=== PATIENT | female | born 1975 | race Hispanic/Latino ===

== ENCOUNTER → 2019-09-24 | Day surgery (SDC) | payer OTHER ==
[2019-09-20 10:39] LABS: BASOPHILS % 0.2 % (0.0-1.0); EOSINOPHILS # (AUTO) 0.1 (0.0-0.4); EOSINOPHILS % 0.6 % (0.0-6.0); HEMATOCRIT 44.6 % (34.2-44.1); HEMOGLOBIN 15.1 g/dL (12.0-16.0); LYMPHOCYTES # (AUTO) 2.5 (1.0-3.2); LYMPHOCYTES % 27.6 % (18.0-39.1); MEAN CORPUSCULAR HGB CONC 33.9 g/dL (31-35); MEAN CORPUSCULAR VOLUME 85.6 fL (81-99); MONOCYTES # (AUTO) 0.6 (0.2-0.8); MONOCYTES % 6.4 % (4.4-11.3); NEUTROPHILS # (AUTO) 5.8 (2.1-6.9); PLATELET COUNT 233 x10e3/uL (140-360); RED BLOOD COUNT 5.21 x10e6/uL (3.6-5.1); RED CELL DISTRIBUTION WIDTH 12.2 % (11.7-14.4)
[2019-09-20 10:54] LABS: ANION GAP 14.6 mmol/L (8-16); BLOOD UREA NITROGEN 20 mg/dL (7-26); BUN/CREATININE RATIO 26 (6-25); CALCIUM 9.5 mg/dL (8.4-10.2); CARBON DIOXIDE 24 mmol/L (22-29); CHLORIDE 103 mmol/L (98-107); CREATININE, SERUM 0.76 mg/dL (0.57-1.11); EST GLOMERULAR FILTRATION RATE > 60 ML/MIN (60-); GLUCOSE 137 mg/dL (74-118); POTASSIUM 3.6 mmol/L (3.5-5.1); SODIUM 138 mmol/L (136-145)
[~2019-09-24] MED LIST: AMLODIPINE BESYL5 MG PO; BACITRACIN ZINC 15 GM OINT ONE; BENICAR20 MG PO; BUPIVACAINE 0.5%/EPI 30 ML SDV INJ ONE; CEFAZOLIN SOD 1 GM VIAL ONE; DEXAMETHASONE SOD PHOS INJ 4 MG/ML VIAL ONE; DICYCLOMINE HCL10 MG PO; FENTANYL CITRATE/PF 100MCG/2 ML INJ ONE; GLYCOPYRROLATE INJ 0.2 MG/ML VIAL ONE; HYDROGEN PEROXIDE 120 ML BTL ONE; KETOROLAC TROMETHAMINE 30 MG/ML VIAL ONE; LIDOCAINE HCL 2% LOCAL INJ 5 ML SDV VIAL INJ ONE; METFORMIN HCL500 M2 PO; MIDAZOLAM HCL 2 MG/2 ML VIAL ONE; NEOSTIGMINE 1 MG/ML 10ML VIAL ONE; OLMESARTAN-HCT1 EAC1 PO; OMEPRAZOLE40 MG PO; ONDANSETRON HCL INJ 2MG/ML 2ML 2 MG/ML VIAL ONE; PROPOFOL IV EMULSION 10 MG/ML 20 ML VIAL ONE; ROCURONIUM BROMIDE 10 MG/ML 5ML VIAL ONE; SEVOFLURANE INHAL SOLN 250 ML PEN BTL ONE
--- OUTSIDE RECORDS SUMMARY | 2019-09-24 06:55 | XMS REPORT ---
[facility] Address Unknown Phone Unavailable Care Team Providers Care R Developer Name Role Phone Unavailable Unavailable Problems This patient has no known problems. Allergies, Adverse Reactions, Alerts This patient has no known allergies or adverse reactions. Medications This patient has no known medications. Encounters Start Date/Time End Date/Time Encounter Type Admission Type Attending [facility] Facility Care Department Encounter ID 2019-07-04 19:32:00 2019-07-04 19:32:00 Emergency [id number] 2018-08-13 00:00:00 2018-08-13 00:00:00 Outpatient [facility] [id number] 2018-07-21 14:06:34 2018-07-21 14:06:34 Outpatient [facility] [id number] 2018-07-21 13:04:37 2018-07-21 13:04:37 Outpatient [facility] [id number] 2018-06-18 09:04:39 2018-06-18 09:04:39 Outpatient [facility] [id number] 2018-06-01 09:31:31 2018-06-01 09:31:31 Outpatient [facility] [id number] 2018-06-01 00:00:00 2018-06-01 00:00:00 Outpatient [facility] [id number] 2018-05-25 00:00:00 2018-05-25 00:00:00 Outpatient [facility] [id number] 2018-05-15 00:00:00 2018-05-15 00:00:00 Outpatient [facility] [id number] 2018-05-01 08:10:23 2018-05-01 08:10:23 Outpatient [facility] [id number] 2018-04-29 00:00:00 2018-04-29 00:00:00 Outpatient [facility] [id number] 2018-04-23 20:50:47 2018-04-23 20:50:47 Emergency [facility] [id number] 2018-04-21 00:00:00 2018-04-21 00:00:00 Outpatient [facility] [id number] 2018-04-13 14:00:18 2018-04-13 14:00:18 Outpatient [facility] [id number] 2018-04-13 08:19:04 2018-04-13 08:19:04 Outpatient [facility] [id number] 2018-03-27 14:23:18 2018-03-27 14:23:18 Outpatient [facility] [id number] 2018-03-16 10:47:41 2018-03-16 10:47:41 Outpatient [facility] [id number] 2018-03-10 14:20:16 2018-03-10 14:20:16 Outpatient [facility] [id number] 2018-01-15 14:52:48 2018-01-15 14:52:48 Outpatient [facility] [id number] 2017-12-23 00:00:00 2017-12-23 00:00:00 Outpatient [facility] [id number] 2017-12-11 15:39:26 2017-12-11 15:39:26 Outpatient [facility] [id number] 2017-12-11 10:29:14 2017-12-11 10:29:14 Outpatient [facility] [id number] 2017-12-11 08:54:18 2017-12-11 08:54:18 Outpatient [facility] [id number]
--- NOTE | 2019-09-24 12:24 | Operative Report ---
DATE OF PROCEDURE: SURGEON: Kevin Lopez MD PREOPERATIVE DIAGNOSES: Cholelithiasis, biliary colic, and morbid obesity. POSTOPERATIVE DIAGNOSES: Cholelithiasis, biliary colic, and morbid obesity. PROCEDURE PERFORMED: Laparoscopic cholecystectomy. ANESTHESIA: General. ESTIMATED BLOOD LOSS: Minimal. DRAINS: None. COMPLICATIONS: None. INDICATION AND FINDINGS: The patient is a 44-year-old morbidly obese female with BMI of 48, admitted for cholecystectomy because of symptomatic cholelithiasis. The patient had an ultrasound that revealed gallstones. No ductal dilatation. There was a fatty liver on ultrasound. Her common bile duct was 3 mm. There was some mild elevation of the transaminases are consistent with a hepatic steatosis, secondary to her morbid obesity. This patient is diabetic, hypertensive, and obese. She has the X syndrome. Intraoperative findings were multiple stones, there was no ductal dilatation, the liver was fatty infiltration. DESCRIPTION OF PROCEDURE: With the patient lying on the operative table in the supine position, after administration of general anesthesia, she was prepped and draped for laparoscopic cholecystectomy. The procedure was begun by attempting to establish a pneumoperitoneum in the right upper quadrant, but I was not able to access the intraabdominal cavity and then I established a pneumoperitoneum in the umbilical site. Then, we introduced the camera in the right upper quadrant, attempted initial trocar insertion, placed a 5 mm camera and ascertained that there was no evidence of adhesions. The abdomen at this point, under direct vision where the camera I placed a 10/11 trocar in the umbilical port and then we ended up placing three other trocars; using a 10 mm trocar for the subxiphoid; 5 mm trocar for the midclavicular line and right anterior axillary line. The patient was rotated to the left with the head up and the gallbladder was retracted cephalad with the fundus and laterally and inferiorly through the neck using grasping forceps, we exposed the hepatorenal ligament and we were able to identify the cystic duct without any major difficulties. We then clipped it three times distally, one proximally. The cystic artery was transected also between titanium clips and then we took down the gallbladder using a combination of sharp dissection with the scissors. At some point, we had made a hole in the gallbladder and then we had spillage of stones that were all carefully and methodically suctioned out. After we detached the gallbladder, we placed it in an endobag. We then dropped the endobag into the abdominal cavity and then continued the procedure. We make sure that the gallbladder bed fossa was absolutely dried, that there was no evidence of bowel injury or bleeding. We re-irrigated the right upper quadrant and the bladder until we did not find any further stones. At this point, then we retrieved the gallbladder bag through the umbilical port and then released the pneumoperitoneum, closed the wounds using three of the 0 Vicryls for the umbilical port, 2-0 chromic for the soft tissue in that location as well as the subxiphoid port, and then the skin of all the ports were closed using dena. A 0.25% Marcaine with epinephrine was given as local block at the end of the case. The patient tolerated the procedure well and taken to recovery room in stable condition. MD BENJY Hodge/CLARI /[id number]
[2019-09-24 13:20] VITALS: BP 109/61
== END | disposition home or self-care (01) ==
LOC: OR 06:53
PROVIDERS: ATTEND Surgery
DX: K80.10 Calculus of gallbladder with chronic cholecystitis without obstruction (principal); Z01.810 Encounter for preprocedural cardiovascular examination; Z01.812 Encounter for preprocedural laboratory examination; E11.9 Type 2 diabetes mellitus without complications; I10 Essential (primary) hypertension; E66.01 Morbid (severe) obesity due to excess calories; Z68.42 Body mass index [BMI] 45.0-49.9, adult; K76.0 Fatty (change of) liver, not elsewhere classified; I20.9 Angina pectoris, unspecified; Z82.5 Family history of asthma and other chronic lower respiratory diseases; Z82.49 Family history of ischemic heart disease and other diseases of the circulatory system
CPT/HCPCS: 36415 ×2; 47562; 80048; 81025; 82948; 85025; 88304; 93005; J0690; J1100; J1885; J2001; J2250; J2405; J2704; J2710; J3010